=== PATIENT | male | born 1980 | race Caucasian/White ===

== ENCOUNTER 2024-07-23 16:46 | Emergency (ER) | payer OTHER ==
[~2024-07-23] VITALS: Ht 188 cm; Wt 99.8 kg
[~2024-07-23 16:46] MED LIST: ALBU90OI INH; ALPR.5 PO; AZIT250 PO; CODE30 PO; CYCL10 PO; HYDACE5 PO; KETO10 PO; LISI20 PO; LORA1 PO; LORA2 PO; MELO7.5 PO; META800 PO; METH10 PO; NAPR500 PO; Naprosyn500 MG PO; OXYACE5T PO; OXYACE7.5T PO; PENVK250 PO; PRED20 PO; PROP10 PO; RANI150 PO; RXOXYACE PO; RXPENVK250 PO; TRAM50 PO; TRAZ100 PO; Ultram50 MG PO; [UNRECOGNIZED DRUG - OTHER]
[2024-07-23] MEDS ORDERED: HYDROmorphone HCl/Pf 1MG SYR IV ONE ×3 (17:10→19:50)
[2024-07-23 17:36] LABS: Calcium, Ionized (POC) 1.14 mmol/L (1.10-1.46); Chloride (POC) 100 mmol/L (98-108); Glucose (ISTAT POC) 116 mg/dL (70-99); Hemoglobin (POC) 13.6 g/dL (13.5-17.5); Potassium (POC) 3.1 mmol/L (3.5-5.5); Sodium (POC) 140 mmol/L (135-148); Total CO2 (POC) 26 mmol/L (21-32)
[2024-07-23 20:00] VITALS: BP 152/82
[2024-07-23] MEDS ORDERED: LORazepam 2 MG/ML 1ML Injection IV ONE (20:40)
[2024-07-23] MEDS ORDERED: Percocet 5-3251 EACH PO (21:51)
[2024-07-23] MEDS ORDERED: RX Prepack 6 Tabs Oxycodone 5mg UD ONE (21:55)
== END 2024-07-23 22:34 | disposition home or self-care (01) ==
LOC: ER 16:46
PROVIDERS: Student in an Organized Health Care Education/Training Program
DX: S92.061A Displaced intraarticular fracture of right calcaneus, initial encounter for closed fracture (principal); K21.9 Gastro-esophageal reflux disease without esophagitis; I10 Essential (primary) hypertension; V89.2XXA Person injured in unspecified motor-vehicle accident, traffic, initial encounter; Z88.6 Allergy status to analgesic agent
CPT/HCPCS: 71260; 73110; 73120; 73552; 73590; 73610; 73630; 73700; 74177; 80047; 85014; 96374-59; 96375-59; 96376-59; 99284-25; A9270; J1171; J2060; Q9967

== ENCOUNTER → 2025-04-21 | Outpatient (CLI) | payer OTHER ==
[~2025-04-21] MED LIST changes: +ACET500 PO; +Percocet 5-3251 EACH PO
== END | disposition home or self-care (01) ==
LOC: LAB 13:14 → LAB SHORT 13:14
DX: L82.0 Inflamed seborrheic keratosis (principal); D49.2 Neoplasm of unspecified behavior of bone, soft tissue, and skin
CPT/HCPCS: 88305